=== PATIENT | female | born 1980 | race African-American/Black ===

== ENCOUNTER 2019-08-19 09:20 | Outpatient (CLI) | payer OTHER ==
--- NOTE | 2019-08-19 14:12 | Ultrasound Report ---
ULTRASOUND PELVIS COMPLETE ULTRASOUND TRANSVAGINAL INDICATION / CLINICAL INFORMATION: R10.2) PELVIC PAIN. TECHNIQUE: Transabdominal and Transvaginal. Duplex Color Doppler used: Yes. COMPARISON: None available FINDINGS: UTERUS: Present. - Appearance (if present): No significant abnormality. The uterus is anteverted. - Size in cm (if present): 8.8 x 4.0 x 5.2. - Endometrial Complex (if present): No significant abnormality.. Thickness = 5 mm - Mass lesions: None. - Additional findings: None. RIGHT ADNEXA: No significant ovarian cyst or mass. Normal color Doppler blood flow. 3.5 x 2.2 x 2.8 c m. LEFT ADNEXA: A 4.3 cm unilocular simple appearing cyst is identified. Normal color Doppler blood flow . 5.0 x 4.7 x 3.5 cm. Spectral Doppler waveforms demonstrate arterial flow to the left ovary. URINARY BLADDER: No significant abnormality. FREE FLUID: Trace free fluid in the cul-de-sac appears physiologic. ADDITIONAL FINDINGS: None. IMPRESSION: 4.3 cm left ovarian cyst. Unremarkable uterus, endometrium and right ovary. Signer Name: Ender Lopes Jr, MD Signed: 08/19/2019 2:07 PM Workstation Name: [id number]
== END 2019-08-19 09:21 | disposition home or self-care (01) ==
LOC: US 09:20
PROVIDERS: ATTEND Family Medicine
DX: N92.1 Excessive and frequent menstruation with irregular cycle (principal); R10.2 Pelvic and perineal pain; N83.202 Unspecified ovarian cyst, left side
CPT/HCPCS: 76830; 76856